=== PATIENT | female | born 1980 | race Asian ===

== ENCOUNTER 2025-05-02 21:24 | Emergency (ER) | payer MEDICAID ==
[~2025-05-02] VITALS: Ht 165.1 cm; Wt 79.1 kg
[2025-05-02 21:35] VITALS: BP 108/50; PULSE 70; RESP 18; TEMP 97.8; O2SAT 100
[2025-05-02] MEDS: methocarbamoL 500 MG TABLET PO ONE (22:48)
[2025-05-02] MEDS: LIDOCAINE 5% TRANSDERMAL PATCH TD ONE (22:48)
[2025-05-02] MEDS: IBUPROFEN 400 MG TABLET PO ONE (22:48)
[2025-05-02] MEDS: ACETAMINOPHEN 500 MG TABLET PO ONE (22:48)
[2025-05-02] MEDS ORDERED: METH-812 PO (23:17)
== END 2025-05-02 23:56 | disposition home or self-care (01) ==
LOC: EMS 21:24
DX: M54.89 Other dorsalgia (principal); Z79.899 Other long term (current) drug therapy; X58.XXXA Exposure to other specified factors, initial encounter; Y93.89 Activity, other specified; Y92.89 Other specified places as the place of occurrence of the external cause; Y99.8 Other external cause status
CPT/HCPCS: 99284; Z7502; Z7610